=== PATIENT | male | born 1980 | race Two or more races ===

== ENCOUNTER 2020-07-13 09:51 | Inpatient (IN) | payer OTHER ==
[~2020-07-13] VITALS: Ht 165.1 cm; Wt 88.5 kg
[2020-07-13 10:28] LABS: MEAN CORPUSCULAR HEMOGLOBIN 30.6 pg (28.0-32.0); MEAN CORPUSCULAR VOLUME 87.5 fL (80.0-94.0); MEAN PLATELET VOLUME 8.9 fl (7.4-10.4); PLATELET 218 x1000/uL (130-400); RED BLOOD CELL COUNT 4.92 mill/uL (4.7-6.1); RED CELL DISTRIBUTION WIDTH 14.4 % (11.6-14.6)
[2020-07-13] MEDS ORDERED: VANCOMYCIN 1 G PREMIX 200 ML IV SCH (10:30)
[2020-07-13] MEDS ORDERED: METHYLPREDNISOLONE SOD SUCC 125 MG/2 ML VIAL IV ONE (10:30)
[2020-07-13] MEDS ORDERED: LEVOFLOXACIN 750MG PREMIX 150 ML IV ONE (10:30)
[2020-07-13 10:31] LABS: CHLORIDE 105 mEq/L (98-107)
[2020-07-13 11:11] LABS: PLATELET ESTIMATE NORMAL
[2020-07-13] MEDS ORDERED: IOHEXOL-350 100 ML BOTTLE ONE (13:39)
[2020-07-13 13:40] VITALS: BP 140/71
[2020-07-13 14:00] VITALS: BP 132/71
[2020-07-13] MEDS ORDERED: TOPUD PO (14:41)
[2020-07-13] MEDS ORDERED: CLONIDINE 0.1MG TABLET PO PRN (15:00)
[2020-07-13] MEDS ORDERED: ALBUTEROL 6.7GM HFA INHALER ORI PRN (15:00)
[2020-07-13] MEDS ORDERED: ONDANSETRON HCL 4MG/2ML INJ IV PRN (15:00)
[2020-07-13] MEDS ORDERED: ACETAMINOPHEN 325MG TABLET PO PRN (15:00)
[2020-07-13 15:14] LABS: BG BASE EXCESS -0.1 mmol/L (-2.0-2.0); BG CARBOXYHEMOGLOBIN 0.3 % (0.5-1.5); BG DEOXYHEMOGLOBIN 2.4 % (0.0-5.0); BG FRACTION INSPIRED OXYGEN 36; BG HCO3 ACT 23.5 mmol/L (22.0-26.0); BG METHEMOGLOBIN 0.2 % (0.0-1.5); BG OXYGEN SATURATION 97.6 % (92.0-98.5); BG OXYHEMOGLOBIN 97.1 % (94.0-97.0); BG PCO2 35.4 mmHg (35.0-45.0); BG PO2 106.6 mmHg (75.0-100.0); BG SAMPLE SITE RIGHT RADIAL; BG TOTAL HEMOGLOBIN 14.7 g/dL (12.0-18.0); BG VENT MODE NASAL CANNULA
[2020-07-13] MEDS: DEXAMETHASONE 10 MG/ML VIAL IV SCH (15:42)
[2020-07-13] MEDS: ENOXAPARIN 40MG/0.4ML SYR SUBCUT SCH (15:42)
[2020-07-13 16:00] VITALS: BP 117/70
[2020-07-13 16:14] LABS: D-DIMER 0.76 mg/L FEU (<0.50)
[2020-07-13] MEDS: VANCOMYCIN 1 G PREMIX 200 ML IV SCH (17:00)
[2020-07-13 20:00] VITALS: BP 116/72
[2020-07-13] MEDS: GUAIFENESIN 200MG/10ML SUGAR FREE UDC PO PRN (23:08)
[2020-07-13] MEDS ORDERED: DIPHENHYDRAMINE 50MG/ML VIAL IV PRN (23:15)
[2020-07-13 23:34] LABS: CREATINE KINASE 81 IU/L (39-308)
[2020-07-13 23:35] LABS: CREATINE KINASE MB FRACTION < 1.0 ng/mL (0.5-3.6)
[2020-07-14] VITALS: BP 124/80
[2020-07-14] MEDS: VANCOMYCIN 1 G PREMIX 200 ML IV SCH ×3 (00:01→16:03)
[2020-07-14 04:00] VITALS: BP 131/65
[2020-07-14 07:57] VITALS: BP 103/69
[2020-07-14 08:10] LABS: CREATINE KINASE 80 IU/L (39-308)
[2020-07-14 08:11] LABS: CREATINE KINASE MB FRACTION < 1.0 ng/mL (0.5-3.6)
[2020-07-14 09:23] LABS: BG BASE EXCESS -5.3 mmol/L (-2.0-2.0); BG DEOXYHEMOGLOBIN 8.7 % (0.0-5.0); BG FRACTION INSPIRED OXYGEN 32; BG HCO3 ACT 16.8 mmol/L (22.0-26.0); BG METHEMOGLOBIN 0.3 % (0.0-1.5); BG OXYGEN SATURATION 91.3 % (92.0-98.5); BG PH 7.446 (7.350-7.450); BG PO2 57.9 mmHg (75.0-100.0); BG SAMPLE SITE RIGHT RADIAL; BG TOTAL HEMOGLOBIN 14.3 g/dL (12.0-18.0); BG VENT MODE NASAL CANNULA
[2020-07-14 09:42] LABS: HEMATOCRIT. 38.7 % (42.0-52.0); HEMOGLOBIN. 13.6 g/dL (14.0-18.0); MEAN CORPUSCULAR HEMOGLOBIN 30.9 pg (28.0-32.0); MEAN CORPUSCULAR VOLUME 87.7 fL (80.0-94.0); MEAN PLATELET VOLUME 8.8 fl (7.4-10.4); PLATELET 259 x1000/uL (130-400); RED BLOOD CELL COUNT 4.41 mill/uL (4.7-6.1); RED CELL DISTRIBUTION WIDTH 13.9 % (11.6-14.6)
[2020-07-14 10:15] LABS: CHLORIDE 109 mEq/L (98-107)
[2020-07-14] MEDS: LEVOFLOXACIN 500MG PREMIX 100 ML IV SCH (10:37)
[2020-07-14 12:00] VITALS: BP 108/63
[2020-07-14] MEDS ORDERED: ZOLPIDEM TARTRATE 5MG TABLET PO PRN (13:30)
[2020-07-14 13:53] LABS: BG CARBOXYHEMOGLOBIN 0.5 % (0.5-1.5); BG DEOXYHEMOGLOBIN 13.5 % (0.0-5.0); BG FRACTION INSPIRED OXYGEN 21; BG HCO3 ACT 23.6 mmol/L (22.0-26.0); BG METHEMOGLOBIN 0.1 % (0.0-1.5); BG OXYGEN SATURATION 86.4 % (92.0-98.5); BG OXYHEMOGLOBIN 85.9 % (94.0-97.0); BG PCO2 31.8 mmHg (35.0-45.0); BG PH 7.488 (7.350-7.450); BG PO2 47.7 mmHg (75.0-100.0); BG SAMPLE SITE LEFT RADIAL; BG TOTAL HEMOGLOBIN 14.5 g/dL (12.0-18.0); BG VENT MODE ROOM AIR
[2020-07-14 16:00] VITALS: BP 111/71
[2020-07-14] MEDS: DEXAMETHASONE 10 MG/ML VIAL IV SCH (16:03)
[2020-07-14] MEDS: ENOXAPARIN 40MG/0.4ML SYR SUBCUT SCH (16:04)
[2020-07-14 16:45] LABS: *AMPHETAMINES SCREEN URINE NEGATIVE (NEGATIVE)
[2020-07-14 16:46] LABS: *BARBITURATES SCREEN URINE NEGATIVE (NEGATIVE); *BENZODIAZEPINES SCREEN URINE NEGATIVE (NEGATIVE); *COCAINE SCREEN URINE NEGATIVE (NEGATIVE); CANNABINOID URINE SCREEN PRESUMTIVE POSITIVE (NEGATIVE); METHADONE URINE SCREEN NEGATIVE (NEGATIVE); OPIATES URINE SCREEN PRESUMTIVE POSITIVE (NEGATIVE); PHENCYCLIDINE URINE SCREEN NEGATIVE (NEGATIVE)
[2020-07-14 17:20] LABS: PLATELET ESTIMATE NORMAL
[2020-07-14 20:00] VITALS: BP 113/73
[2020-07-14] MEDS: GUAIFENESIN 200MG/10ML SUGAR FREE UDC PO PRN (21:44)
[2020-07-15] VITALS: BP 118/65
[2020-07-15] MEDS: VANCOMYCIN 1 G PREMIX 200 ML IV SCH ×2 (00:23→08:20)
[2020-07-15] MEDS: MAGNESIUM/ALUMINUM HYDROXIDE/SIMETHICONE 30ML UDC PO PRN ×2 (00:55→13:29)
[2020-07-15 04:00] VITALS: BP 110/71
[2020-07-15 06:57] LABS: CHLORIDE 108 mEq/L (98-107)
[2020-07-15 06:58] LABS: HEMATOCRIT. 39.7 % (42.0-52.0); HEMOGLOBIN. 13.6 g/dL (14.0-18.0); MEAN CORPUSCULAR HEMOGLOBIN 30.6 pg (28.0-32.0); MEAN CORPUSCULAR VOLUME 89.1 fL (80.0-94.0); MEAN PLATELET VOLUME 8.6 fl (7.4-10.4); PLATELET 272 x1000/uL (130-400); RED BLOOD CELL COUNT 4.45 mill/uL (4.7-6.1); RED CELL DISTRIBUTION WIDTH 14.2 % (11.6-14.6)
[2020-07-15 08:00] VITALS: BP 97/59
[2020-07-15] MEDS: GUAIFENESIN 200MG/10ML SUGAR FREE UDC PO PRN ×2 (08:27→21:30)
[2020-07-15] MEDS: LEVOFLOXACIN 500MG PREMIX 100 ML IV SCH (10:34)
[2020-07-15 12:00] VITALS: BP 125/81
[2020-07-15] MEDS ORDERED: POTASSIUM CHLORIDE 20MEQ TABLET SR PO SCH (13:00)
[2020-07-15] MEDS ORDERED: VANCOMYCIN 1250MG in DEXTROSE 5% WATER 250ML IV SCH (14:00)
[2020-07-15 14:02] LABS: PLATELET ESTIMATE NORMAL
[2020-07-15] MEDS: ENOXAPARIN 40MG/0.4ML SYR SUBCUT SCH (15:38)
[2020-07-15] MEDS: DEXAMETHASONE 10 MG/ML VIAL IV SCH (15:38)
[2020-07-15 16:00] VITALS: BP 107/66
[2020-07-15] MEDS ORDERED: DEXTL PO (17:03)
[2020-07-15] MEDS ORDERED: DEXA6TAB MT (17:03)
[2020-07-15 20:00] VITALS: BP 105/79
[2020-07-15] MEDS ORDERED: ZOLPIDEM TARTRATE 5MG TABLET PO PRN (21:00)
[2020-07-15] MEDS: FAMOTIDINE 20MG TABLET PO SCH (21:23)
[2020-07-16] VITALS: BP 111/70
[2020-07-16 04:00] VITALS: BP 122/73
[2020-07-16 08:00] VITALS: BP 96/58
[2020-07-16] MEDS: GUAIFENESIN 200MG/10ML SUGAR FREE UDC PO PRN (08:30)
[2020-07-16] MEDS: FAMOTIDINE 20MG TABLET PO SCH (08:30)
[2020-07-16] MEDS: LEVOFLOXACIN 500MG PREMIX 100 ML IV SCH (10:33)
[2020-07-16 12:00] VITALS: BP 95/101
[2020-07-16] MEDS: ENOXAPARIN 40MG/0.4ML SYR SUBCUT SCH (15:43)
[2020-07-16] MEDS: DEXAMETHASONE 10 MG/ML VIAL IV SCH (15:44)
[2020-07-16 16:00] VITALS: BP 115/77
[2020-07-16 16:25] VITALS: BP 115/77
== END 2020-07-16 18:30 | disposition home or self-care (01) | DRG 137 ==
LOC: ER 10:06 → 7WST 11:00 → EDBEDREQTM 11:08 → EDBEDREQ 11:08 → ENRESERV 11:16 → 7WST 13:22
PROVIDERS: ADMIT Internal Medicine; ATTEND Internal Medicine
DX: U07.1 COVID-19 (principal); J96.01 Acute respiratory failure with hypoxia; J12.82 Pneumonia due to coronavirus disease 2019; R74.01 Elevation of levels of liver transaminase levels; F12.90 Cannabis use, unspecified, uncomplicated; F17.200 Nicotine dependence, unspecified, uncomplicated; Z88.6 Allergy status to analgesic agent; Z90.49 Acquired absence of other specified parts of digestive tract; J18.9 Pneumonia, unspecified organism
CPT/HCPCS: 36415; 36600; 71045; 71275; 80048; 80053; 80202; 80305; 82375; 82550; 82553; 82805; 83880; 84484; 85025; 85379; 85384; 87426; 93005; 93970; 99285; J1100; J1200; J1650; J1956; J2405; J2930; J3370; J7060; Q9967; U0003